=== PATIENT | female | born 1990 | race Caucasian/White ===

== ENCOUNTER 2017-10-08 13:58 | Emergency (ER) | payer OTHER, MEDICAID, SELFPAY ==
[2017-10-08 14:20] VITALS: BP 122/66; PULSE 78; RESP 16; TEMP 36.4; O2SAT 100; BMI 48.4
[2017-10-08 14:22] VITALS: BP 122/66; BP 122/72; BP 133/76; PULSE 74; PULSE 78; PULSE 79
[2017-10-08] MEDS: PANTOPRAZOLE 40 MG VIAL IV (15:06)
[2017-10-08] MEDS: ONDANSETRON 4 MG/2 ML INJ IV (15:06)
[2017-10-08] MEDS: SODIUM CHLORIDE 0.9% 1,000 ML 1000 ML IV (15:06)
[2017-10-08 15:14] VITALS: BP 121/72; PULSE 67; RESP 15; O2SAT 100
--- NOTE | 2017-10-08 15:19 | ED_ITS ---
HPI - Dizziness General Chief Complaint: Dizziness Stated Complaint: DIZZY, NAUSEOUS, FELL IN SHOWER THIS MORNING Time Seen by Provider: 10/08/17 14:14 Source: patient and family Mode of arrival: ambulatory Limitations: no limitations History of Present Illness HPI Narrative: 27-year-old otherwise healthy female presents to the emergency department with her family in the chief complaint of dizziness since 3:00 a.m.. She states that the dizziness came on rather suddenly and is associated with a few episodes of vomiting. She stood up and the shower and a near syncopal episode. She is currently on her menses and states that is normal for her. She denies any chest pain or shortness of breath. She states her dizziness is persistent all the time but is made worse when she moves her head or stands. She states her earlier in the day things were spinning rapidly but that has since improved MD complaint: dizziness, lightheadedness and near syncope Onset (ago): hour(s) Timing: sudden onset Description: sense of movement and lightheadedness History of similar episodes: No History of trauma: No Severity: moderate Relieving factors: nothing Exacerbating factors: nothing Associated symptoms: nausea and vomiting Related Data Previous Rx's Medication Instructions Recorded Breast Pump - Double Electric ea #1 12/15/16 ranitidine HCl 150 mg PO BID PRN #60 tab 06/20/17 fluoxetine 40 mg capsule 40 mg PO DAILY #90 cap 08/03/17 ondansetron [Zofran ODT] 4 mg PO Q6H PRN #14 tab 10/08/17 Allergies Allergy/AdvReac Type Severity Reaction Status Date / Time No Known Drug Allergies Allergy Verified 10/08/17 14:19 Review of Systems Review of Systems All systems reviewed & are unremarkable except as noted in HPI and below Constitutional Denies chills, Denies fever(s), Denies lethargy and Denies weakness Eyes Denies change in vision, Denies eye discharge, Denies irritation and Denies loss of vision ENT Ears, Nose, Mouth, and Throat: Denies change in voice, Denies neck pain and Denies sore throat Cardiovascular Denies chest pain, Reports syncope, Denies irregular heart rhythm, Denies lightheadedness, Denies palpitations, Denies dyspnea, Denies dyspnea on exertion and Denies orthopnea Respiratory Denies cough, Denies dyspnea, Denies dyspnea on exertion and Denies wheezing Gastrointestinal Gastrointestinal: Denies abdominal pain, Denies change in bowel habits, Denies diarrhea, Reports nausea and Reports vomiting Genitourinary Denies hematuria, Denies flank pain, Denies urinary incontinence and Denies urinary urgency Musculoskeletal Denies neck pain Integumentary/Breasts Denies pruritus, Denies erythema, Denies rash and Denies wounds Neurologic Denies confusion, Reports syncope, Denies loss of vision and Denies weakness Psychiatric Denies anxiety, Denies confusion, Denies depression, Denies homicidal ideation and Denies suicidal ideation Endocrine Denies palpitations Hematologic/Lymphatic Denies easy bruising Allergic/Immunologic Denies wheezing PFSH Medical History Depression (Chronic) Social History Smoking Status: Never smoker Exam Initial Vital Signs Initial Vital Signs: Vital Signs Temperature 97.6 F 10/08/17 14:20 Pulse Rate 78 10/08/17 14:20 Respiratory Rate 16 10/08/17 14:20 Blood Pressure 122/66 H 10/08/17 14:20 Pulse Oximetry 100 10/08/17 14:20 Const General: cooperative and well developed Nutritional Appearance: well nourished Orientation: alert, awake, oriented x3 and not confused [facility] Head: normocephalic and atraumatic Ears: external ears normal and TM's normal bilaterally Nose: external nose normal and No nasal discharge Face and sinus: sinuses nontender, face symmetric, no sinus tenderness and No dry mucous membranes Mouth: oral mucosae normal and moist mucous membranes Teeth and gingiva: dentition normal Throat: tonsils normal and uvula midline Eyes General: appearance normal, both eyes and all related structures Eyelids: eyelids normal Conjunctivae: conjunctivae normal Sclera: sclerae normal Pupils: PERRL EOM: EOM intact bilaterally Neck Neck: normal visual inspection, trachea midline, No lymphadenopathy, No midline deformity and No JVD Lymphatic: No lymphedema Chest Chest: normal inspection of the chest Resp Effort & Inspection: normal respiratory effort, able to speak in complete sentences, no respiratory distress and no use of accessory muscles Auscultation: clear to auscultation bilaterally, no rales, no rhonchi and no wheezes Cardio Rate: regular rate Rhythm: regular rhythm Heart Sounds: no click, no gallops, no murmurs and no rubs Pulses: normal peripheral pulses GI Inspection: non-distended Palpation: soft, no hepatosplenomegaly, No guarding, No pulsatile mass and No tender Auscultation: normal bowel sounds Back/Spine/Pelvis Back: No CVA tenderness Cervical Spine: cervical ROM normal and No pain with cervical ROM Thoracic/Lumbar Spine: thoracic and lumbar spine normal to inspection Skin General: no rashes or lesions noted, No jaundice and No petechiae Neuro General: alert, oriented x3, gait normal and no focal motor deficits Speech: speech normal Extrem General: full ROM, no clubbing, cyanosis or edema, no pedal edema and no calf tenderness Psych Appearance: well kempt Mental Status: mental status grossly normal Attitude: cooperative Thought Content: normal and suicidality Judgment: judgment good Course Orders Ordered: ED Orders 10/08/17 14:05 EKG-12 Lead Routine 10/08/17 15:14 Basic Metabolic Panel Stat Complete Blood Count AUTO DIFF Stat Discontinued Medications Sodium Chloride (Normal Saline 0.9%) 1,000 mls @ 1,000 mls/hr IV BOLUS ONE Stop: 10/08/17 15:52 Last Infusion: 10/08/17 16:16 Dose: 0 mls/hr Admin: 10/08/17 15:06 Dose: 1,000 mls/hr Ondansetron HCl (Zofran) 4 mg IV Q4HR PRN PRN Reason: Nausea And Vomiting Last Admin: 10/08/17 15:06 Dose: 4 mg Ondansetron HCl (Zofran Odt Prepack) 1 bottle MISC SEEINSTR ONE Stop: 10/08/17 18:31 Last Admin: 10/08/17 18:43 Dose: 1 bottle Pantoprazole Sodium (Protonix) 40 mg IV NOW ONE Stop: 10/08/17 14:54 Last Admin: 10/08/17 15:06 Dose: 40 mg Vital Signs - 8 hr 10/08/17 14:20 10/08/17 14:22 10/08/17 15:14 Temperature 97.6 F Pulse Rate 78 67 Pulse Rate [Orthostatic Lying] 78 Pulse Rate [Orthostatic Sitting] 74 Pulse Rate [Orthostatic Standing] 79 Respiratory Rate 16 15 Blood Pressure 122/66 H Blood Pressure [Left Arm] 121/72 H Blood Pressure [Orthostatic Lying] 122/66 H Blood Pressure [Orthostatic Sitting] 133/76 H Blood Pressure [Orthostatic Standing] 122/72 H Pulse Oximetry 100 100 10/08/17 16:09 10/08/17 17:06 10/08/17 18:37 Temperature 98.2 F Pulse Rate 63 68 68 Pulse Rate [Orthostatic Lying] Pulse Rate [Orthostatic Sitting] Pulse Rate [Orthostatic Standing] Respiratory Rate 15 14 16 Blood Pressure Blood Pressure [Left Arm] 110/45 L 99/41 L 100/52 L Blood Pressure [Orthostatic Lying] Blood Pressure [Orthostatic Sitting] Blood Pressure [Orthostatic Standing] Pulse Oximetry 100 100 99 MDM - Dizziness Differential Diagnosis Likely benign paroxysmal positional vertigo, orthostatic hypotension, vertebral basilar insufficiency, cerebrovascular accident, acute vestibular neuronitis and transient cerebral ischemia Medical Records Attestation: I reviewed the patient's medical records. Lab Data Attestation: I reviewed the patient's lab results. Result diagrams: 10/08/17 15:14 10/08/17 15:14 Lab Results 10/08/17 10/08/17 Range/Units 15:14 15:14 WBC 6.4 (4.5-11.0) X10^3/uL RBC 4.83 (4.0-5.2) X10^6/uL Hgb 14.1 (12.0-16.0) g/dL Hct 40.7 (36-46) % MCV 84.3 (80-100) fL MCH 29.2 (26-34) PG MCHC 34.6 (30-36) % RDW 13.5 (11.6-14.8) % Plt Count 281 (150-400) X10^3/uL Neut % (Auto) 71.5 (50-75) % Lymph % (Auto) 20.0 L (25-40) % [place] % (Auto) 7.1 (3-14) % Eos % (Auto) 0.7 L (2-4) % Baso % (Auto) 0.7 (0-2) % Neut # (Auto) 4600 (2522-0001) /uL Sodium 141 (137-145) mmol/L Potassium 4.1 (3.4-5.1) mmol/L Chloride 106 (98-107) mmol/L Carbon Dioxide 27 (22-32) mmol/L BUN 9 (7-17) mg/dL Creatinine 0.60 (0.52-1.04) mg/dL Estimated GFR > 60.0 (>60) mL/min BUN/Creatinine Ratio 15.0 (6-22) Glucose 87 (70-100) mg/dL Calcium 9.2 (8.4-10.2) mg/dL Discharge Plan Departure Patient Disposition: Home, Self-Care Clinical Impression: Dizziness Discharge Date/Time: 10/08/17 18:57 Interventions: ED Discharge Assessment Last Done: 10/08/17 18:57 Instructions: DI for Dizziness-Nonvertigo Activity Restrictions/Additional Instructions: *You have been diagnosed with [ dizziness ] *What to do: *Take medications as directed: Electronically transmitted to [facility] at your request *Follow up with your primary care provider in 2-3 days, call for an appointment. Let them know you were seen in the Emergency Department and that we ask that you be seen in follow up *Return to ER if you should have any new, worsening or concerning symptoms Prescriptions: New ondansetron [Zofran ODT] 4 mg tablet,disintegrating 4 mg PO Q6H PRN (Reason: nausea and vomiting) Qty: 14 RF: 0 No Action Breast Pump - Double Electric Qty: 1 RF: 0 ranitidine HCl 150 MG tablet 150 mg PO BID PRNQty: 60 RF: 2 fluoxetine 40 mg capsule 40 mg PO DAILY Qty: 90 RF: 2 Referrals: Marilee Graham MD [Primary Care Provider] -
[2017-10-08 15:29] LABS: Add Manual Diff / Slide Review NO; Basophils Percent Auto 0.7 % (0-2); Eosinophils Percent Auto 0.7 % (2-4); Hematocrit 40.7 % (36-46); Hemoglobin 14.1 g/dL (12.0-16.0); Mean Corpuscular HGB Conc 34.6 % (30-36); Mean Corpuscular Hemoglobin 29.2 PG (26-34); Mean Corpuscular Volume 84.3 fL (80-100); Monocytes Percent Auto 7.1 % (3-14); Neutrophils Absolute Auto 4600 /uL (3000-5900); Neutrophils Percent Auto 71.5 % (50-75); Platelet Count 281 X10^3/uL (150-400); Red Blood Cell Count 4.83 X10^6/uL (4.0-5.2); Red Cell Distribution Width 13.5 % (11.6-14.8); White Blood Cell Count 6.4 X10^3/uL (4.5-11.0)
--- NOTE | 2017-10-08 15:32 | PC.NURSE ---
Pt feeling better,no longer nauseated.
[2017-10-08 15:40] LABS: Blood Urea Nitrogen 9 mg/dL (7-17); Calcium 9.2 mg/dL (8.4-10.2); Carbon Dioxide 27 mmol/L (22-32); Chloride 106 mmol/L (98-107); Estimated Glomerular Filt Rate > 60.0 mL/min (>60); Glucose 87 mg/dL (70-100); HEMOLYSIS 17 (0-50); Potassium 4.1 mmol/L (3.4-5.1); Sodium 141 mmol/L (137-145)
[2017-10-08 16:09] VITALS: BP 110/45; PULSE 63; RESP 15; O2SAT 100
[2017-10-08 17:06] VITALS: BP 99/41; PULSE 68; RESP 14; O2SAT 100
[2017-10-08 18:37] VITALS: BP 100/52; PULSE 68; RESP 16; TEMP 36.8; O2SAT 99
[2017-10-08] MEDS: ONDANSETRON 4 MG ODT PREPACK 1 BOTTLE MISC (18:43)
== END 2017-10-08 18:57 | disposition home or self-care (01) ==
PROVIDERS: Emergency Provider Emergency Medicine; Family Provider Family Medicine; PCP Family Medicine
DX: R42 Dizziness and giddiness (principal)
CPT/HCPCS: 36591; 80048; 81003; 81025; 82962; 85025; 93005; 93010; 96361; 96374; 96375; 99283; C9113; J2405

== ENCOUNTER → 2017-11-17 10:54 | Outpatient (CLI) | payer OTHER, MEDICAID, SELFPAY | PROVIDERS: Family Provider Family Medicine; PCP Family Medicine; Visit Provider Nurse Practitioner Family | DX: J02.9 Acute pharyngitis, unspecified (principal) | CPT/HCPCS: 87070 ==

== ENCOUNTER → 2018-09-20 19:07 | Outpatient (CLI) | payer OTHER, MEDICAID, SELFPAY | PROVIDERS: Family Provider Family Medicine; PCP Family Medicine; Visit Provider Physician Assistant | DX: N39.0 Urinary tract infection, site not specified (principal) | CPT/HCPCS: 87077; 87086; 87186 ==

== ENCOUNTER → 2018-10-07 09:34 | Outpatient (CLI) | payer OTHER, MEDICAID, SELFPAY ==
--- NOTE | 2018-10-07 11:02 | DI.MRI.S_ITS ---
PROCEDURE: MR HEAD/BRAIN WO CON INDICATIONS: Vertigo with hearing loss, exam suggests central vertigo TECHNIQUE: Noncontrast axial T1 spin echo, axial T2 fast spin echo, sagittal and axial FLAIR, coronal T2 fast spin echo, axial gradient echo, axial diffusion and ADC through the brain. Additionally, high-resolution thin section CISS imaging through the skull base cranial nerves was obtained with subsequent coronal and sagittal reformation from source axial images. COMPARISON: None. FINDINGS: Image quality: Somewhat limited by absence of intravenous contrast. CSF Spaces: Basal cisterns are patent. No extra-axial fluid collections. Ventricles are normal in size and shape. Brain: No intracranial masses or hemorrhage. Shah/white matter interface is normal. Brainstem appears normal. Diffusion-weighted images demonstrate no acute ischemic insult. No chronic ischemic insults. Normal intravascular flow voids are present. Skull and face: Calvarium has normal marrow signal. Orbits appear normal. Sinuses: Sinuses and mastoids are clear. IMPRESSION: The study was ordered without intravenous contrast, which reduces the ability of the examination to detect cranial nerve inflammation. No mass is present, no impingement on the cranial nerves is seen. The brain parenchyma appears normal. Dictated by: Duke Edwards M.D. on 10/09/2018 at 8:10 Approved by: Duke Edwards M.D. on 10/09/2018 at 8:13
== END ==
PROVIDERS: Family Provider Family Medicine; PCP Family Medicine; Visit Provider Family Medicine
DX: R42 Dizziness and giddiness (principal); H91.90 Unspecified hearing loss, unspecified ear
CPT/HCPCS: 70551

== ENCOUNTER → 2019-01-01 15:31 | Outpatient (CLI) | payer OTHER, MEDICAID, SELFPAY | PROVIDERS: Family Provider Family Medicine; PCP Family Medicine; Visit Provider Nurse Practitioner | DX: R30.0 Dysuria (principal) | CPT/HCPCS: 87086 ==

== ENCOUNTER → 2019-01-02 12:58 | Outpatient (CLI) | payer OTHER, MEDICAID, SELFPAY ==
--- NOTE | 2019-01-02 12:59 | DI.US.S_ITS ---
LIMITED ULTRASOUND OF RIGHT BREAST: 01/02/2019 CLINICAL: Palpable right breast lump. Comparison is made to exam dated: 01/02/2019 [facility]. Color flow and real-time ultrasound of the right breast 12 o'clock region were performed on the areas of interest. There is a 1.1 cm x 0.8 cm x 0.9 cm oval mass with indistinct and circumscribed margins in the right breast at 12 o'clock middle depth. This oval mass is hyperechoic. This correlates as palpated and with mammographic findings. Color flow imaging demonstrates that there is no vascularity present. No additional discrete mass or fluid collection identified in the area of palpable abnormality. IMPRESSION: BENIGN There is no sonographic evidence of malignancy. The 1.1 cm x 0.8 cm x 0.9 cm oval mass in the right breast is consistent with fat necrosis given the mammographic finding and is benign. This exam was interpreted at Station ID: [id number]. Electronically Signed By: Joce marte/:01/02/2019 15:45:36 letter sent: Clinical Evaluation Ultrasound BI-RADS: 2 Benign
--- NOTE | 2019-01-02 12:59 | DI.MG.S_ITS ---
BILATERAL DIGITAL DIAGNOSTIC MAMMOGRAM 3D/2D: 01/02/2019 CLINICAL: Baseline exam. Right breast lump. No prior exams were available for comparison. There are scattered fibroglandular elements in both breasts. There is a 1 cm oval fat containing fat necrosis with an indistinct and circumscribed margin in the right breast at 11 o'clock anterior depth. This correlates as palpated. No other significant masses, calcifications, or other findings are seen in either breast. IMPRESSION: INCOMPLETE: NEEDS ADDITIONAL IMAGING EVALUATION The 1 cm oval fat containing fat necrosis in the right breast is indeterminate. An ultrasound is recommended. This exam was interpreted at Station ID: [id number]. NOTE: For mammograms, a report in lay terms will be sent to the patient. Approximately 15% of breast malignancies will not be visualized mammographically. In the management of a palpable breast mass, a negative mammogram must not discourage biopsy of a clinically suspicious lesion. Electronically Signed By: Joce Son M.D. ddholly/roxy:01/02/2019 14:08:21 copy to: Marilee Graham M.D., [facility] [employer], ph: [phone], fax: [phone] ACR BI-RADS Category 0: Incomplete 3340F
== END ==
PROVIDERS: Family Provider Family Medicine; PCP Family Medicine; Visit Provider Physician Assistant
DX: R92.8 Other abnormal and inconclusive findings on diagnostic imaging of breast (principal); N64.1 Fat necrosis of breast; N63.15 Unspecified lump in the right breast, overlapping quadrants
CPT/HCPCS: 76642; 77066; G0279

== ENCOUNTER → 2021-03-20 07:05 | Outpatient (CLI) | payer OTHER, MEDICAID, SELFPAY ==
[2021-03-20 07:50] LABS: Add Manual Diff / Slide Review NO; Basophils Absolute Auto 0 /uL (0-100); Basophils Percent Auto 0.5 % (0-2); Eosinophils Absolute Auto 100 /uL (0-450); Eosinophils Percent Auto 1.6 % (2-4); Hematocrit 40.4 % (36-46); Lymphocytes Absolute Auto 1900 /uL (1100-4500); Lymphocytes Percent Auto 33.4 % (25-40); Mean Corpuscular HGB Conc 34.6 % (30-36); Mean Corpuscular Hemoglobin 29.8 PG (26-34); Monocytes Absolute Auto 400 /uL (0-900); Monocytes Percent Auto 6.5 % (3-14); Neutrophils Absolute Auto 3200 /uL (1500-7000); Platelet Count 276 X10^3/uL (150-400); Red Blood Cell Count 4.69 X10^6/uL (4.0-5.2); Red Cell Distribution Width 12.5 % (11.6-14.8); White Blood Cell Count 5.6 X10^3/uL (4.5-11.0)
[2021-03-20 08:17] LABS: Hemoglobin A1C% w Est Avg Glu 4.7 % (4.0-6.0)
[2021-03-20 08:22] LABS: Alanine Aminotransferase 14 IU/L (<35); Albumin 4.1 g/dL (3.5-5.0); Albumin Globulin Ratio 1.3 (1.0-2.8); Alkaline Phosphatase 45 U/L (38-126); Aspartate Aminotransferase 18 IU/L (14-36); Bilirubin Total 0.5 mg/dL (0.2-1.3); Blood Urea Nitrogen 11 mg/dL (7-17); Calcium 9.3 mg/dL (8.4-10.2); Carbon Dioxide 29 mmol/L (22-32); Chloride 105 mmol/L (98-107); Cholesterol 171 mg/dL (140-199); Estimated Glomerular Filt Rate > 60.0 mL/min (>60); Globulin 3.1 g/dL (1.7-4.1); Glucose 95 mg/dL (70-100); HDL Cholesterol 53 mg/dL (40-60); HEMOLYSIS < 15 (0-50); LDL Cholesterol Calculated 104 mg/dL (<100); Potassium 4.3 mmol/L (3.4-5.1); Sodium 138 mmol/L (137-145); Total Protein 7.2 g/dL (6.3-8.2); Triglycerides 71 mg/dL (35-150)
== END ==
PROVIDERS: Family Provider Family Medicine; PCP Family Medicine; Referring Provider Family Medicine; Visit Provider Family Medicine
DX: Z01.818 Encounter for other preprocedural examination (principal)
CPT/HCPCS: 36415; 80053; 80061; 83036; 85025

== ENCOUNTER 2021-12-08 11:59 | Emergency (ER) | payer OTHER, MEDICAID, SELFPAY ==
[2021-12-08 12:28] VITALS: BP 127/74; PULSE 79; RESP 16; TEMP 36.3; O2SAT 98; BMI 32.9
--- NOTE | 2021-12-08 13:14 | DI.CT.S_ITS ---
PROCEDURE: CT SOFT TISSUE NECK W CON INDICATIONS: left ear swelling TECHNIQUE: After the administration of intravenous contrast, 3.0 mm axial sections acquired from the sella to the aortic arch. Additional oblique axial 3.0 mm sections acquired through the pharynx. 3 mm thick coronal and sagittal reformats were generated. For radiation dose reduction, the following was used: automated exposure control. COMPARISON: None. FINDINGS: Image quality: Excellent. Lymph nodes: As below Vessels: Visualized vasculature appears patent. Neck spaces: The oropharynx, nasopharynx, and pharynx demonstrate no mucosal lesions. The vocal cords, false vocal cords, pyriform sinuses, epiglottis, vallecula, and tongue base all appear normal. Extramucosal spaces appear unremarkable. Glands: Left intraparotid multi lobular nodule measures 2.1 by 1.1 cm overall, and associated with surrounding parotid edema. No evidence of calculus. Right parotid unremarkable. Additional local deep cervical adenopathy measures up to 1 cm. Otherwise, both submandibular and thyroid gland unremarkable Miscellaneous: Visualized brain and orbits appear normal. Lung apices appear clear. Superficial soft tissues appear normal. Advanced carious dental disease noted bilaterally. Bones: No suspicious bony lesions. Visualized sinuses and mastoids appear unremarkable. IMPRESSION: Left parotiditis. Intraparotid nodules probably reflect reactive intraparotid lymph nodes. However, recommend follow-up CT with contrast to assure resolution Approved by: Brandon Curtis M.D. on 12/08/2021 at 13:50
[2021-12-08 13:19] LABS: Add Manual Diff / Slide Review NO; Basophils Absolute Auto 0 /uL (0-100); Basophils Percent Auto 0.3 % (0-2); Eosinophils Absolute Auto 0 /uL (0-450); Eosinophils Percent Auto 0.6 % (2-4); Hematocrit 39.7 % (36-46); Hemoglobin 13.6 g/dL (12.0-16.0); Lymphocytes Absolute Auto 1300 /uL (1100-4500); Lymphocytes Percent Auto 22.9 % (25-40); Mean Corpuscular HGB Conc 34.3 % (30-36); Mean Corpuscular Hemoglobin 30.1 PG (26-34); Mean Corpuscular Volume 87.7 fL (80-100); Monocytes Absolute Auto 600 /uL (0-900); Monocytes Percent Auto 9.8 % (3-14); Neutrophils Absolute Auto 3800 /uL (1500-7000); Neutrophils Percent Auto 66.4 % (50-75); Platelet Count 215 X10^3/uL (150-400); Red Blood Cell Count 4.53 X10^6/uL (4.0-5.2); Red Cell Distribution Width 13.1 % (11.6-14.8); White Blood Cell Count 5.7 X10^3/uL (4.5-11.0)
[2021-12-08 13:22] LABS: Lactate (Lactic Acid) 1.1 mmol/L (0.7-2.1)
[2021-12-08 13:23] LABS: Alanine Aminotransferase 12 IU/L (<35); Albumin 3.9 g/dL (3.5-5.0); Albumin Globulin Ratio 1.1 (1.0-2.8); Alkaline Phosphatase 63 U/L (38-126); Aspartate Aminotransferase 41 IU/L (14-36); BUN Creatinine Ratio 26.9 (6-22); Bilirubin Total 0.7 mg/dL (0.2-1.3); Blood Urea Nitrogen 14 mg/dL (7-17); Carbon Dioxide 25 mmol/L (22-32); Chloride 102 mmol/L (98-107); Estimated Glomerular Filt Rate > 60 mL/min (>60); Globulin 3.4 g/dL (1.7-4.1); Glucose 96 mg/dL (70-100); HEMOLYSIS 46 (0-50); Sodium 135 mmol/L (137-145); Total Protein 7.3 g/dL (6.3-8.2)
--- NOTE | 2021-12-08 16:47 | ED.SKABFB ---
HPI - Skin/Abscess/Foreign Bdy General Chief complaint: Skin/Abscess/Foreign Body Stated complaint: Swollen left ear since tuesday- sent by Dr graham Time Seen by Provider: 12/08/21 12:06 Source: patient Mode of arrival: Ambulatory Limitations: no limitations History of Present Illness HPI narrative: This is a 31-year-old with complaint of left cheek swelling that then moved her left ear with significant swelling, redness and discomfort starting on Tuesday and increasing into today. Patient was started on oral doxycycline on Tuesday and Cipro drops for her ear with very mild improvement. Patient denies fevers. No hearing loss. She is had chronic issues with her ears since she was a child with skin changes itching and has seen multiple doctors as a pediatric patient was on multiple medications she is not sure exactly what was wrong she does not recall the final diagnosis but has persistently had issues over the years. She denies any voice changes, no difficulties with swallowing, patient denies any sore throat. Patient states she noticed some more fullness over the parotid gland today but the swelling has actually slightly improved according to the patient. She is had occasional nausea and vomiting but not persistently. No chest pain, no shortness of breath. No GI or urinary symptoms otherwise. No known drug allergies. She does have some dental issues particularly on that side but states her teeth are not hurting her. Related Data Previous Rx's Medication Instructions Recorded Breast Pump - Double Electric ea ##1 12/15/16 meclizine 12.5 mg tablet 25 mg PO BID-TID PRN dizziness #60 09/26/18 tabs mometasone 0.1 % topical solution 1 applictn topical DAILY #30 mL 10/11/18 pantoprazole 40 mg tablet,delayed 40 mg PO DAILY #30 tabs 11/20/18 release ciprofloxacin 0.3 %-dexamethasone 4 drp EAR-RIGHT BID 7 days #7.5 mL 12/06/21 0.1 % ear drops,suspension (Ciprodex) doxycycline hyclate 100 mg capsule 100 mg PO BID 7 days #14 caps 12/06/21 amoxicillin 875 mg-potassium 1 tab PO BID #20 tabs 12/08/21 clavulanate 125 mg tablet prednisone 10 mg tablets in a dose See Rx Instructions PO .COMPLEX 12/08/21 pack #15 ea Allergies Allergy/AdvReac Type Severity Reaction Status Date / Time No Known Drug Allergies Allergy Verified 12/06/21 10:59 Review of Systems Review of Systems ROS Unobtainable: All systems reviewed & are unremarkable except as noted in HPI and below Patient History Medical History Depression Social History Smoking Status: Never smoker Smoking Status: Never smoker alcohol intake frequency: a few times a month Substance Use Type: does not use Exam Narrative Exam Narrative: GEN: well nourished, well appearing female, alert and oriented x 3, patient appears to be in mild distress. HEENT: Atraumatic, pupils are equal round reactive to light, extraocular movements are intact, nares are clear, TMs are clear with no fluid, there is no conjunctival pallor patient's left ear she at the preauricular area is erythematous no fluctuance is indurated, patient erythema extending into the left high auricular area, patient ear canal is open I am able to visualize her TM without issue. No stridor, no difficulty swallowing secretions. Patient has normal range of motion of neck. Throat is clear without any exudates, erythema, tonsillar enlargement or uvular deviation HEART: Regular rate and rhythm without murmur, clicks, rubs. No carotid bruits, pulses are equal in upper and lower extremities LUNGS:Lungs clear to auscultation, no wheezes, rales, crackles, chest moves symmetrically ABD:bowel sounds normal, soft, non-tender, no guarding, rebound, rigidity, no masses noted, no hepatosplenomegaly :No CVA tenderness MSCL: Non-tender, no muscle atrophy, muscles strength 5/5 upper and lower extremities, full range of motion, normal gait NEURO:CN 2-12 intact, sensation normal SKIN: See above. Initial Vital Signs Initial Vital Signs: Vital Signs Temperature 97.4 F L 12/08/21 12:28 Pulse Rate 79 12/08/21 12:28 Respiratory Rate 16 12/08/21 12:28 Blood Pressure 127/74 12/08/21 12:28 Pulse Oximetry 98 12/08/21 12:28 Oxygen Delivery Method 12/08/21 12:28 Course Orders Ordered: ED Orders 12/08/21 12:39 CMP [Comprehensive Metabolic Panel] Stat Complete Blood Count AUTO DIFF Stat Lactate (Lactic Acid) Stat 12/08/21 13:14 CT soft tissue neck w con Stat 12/08/21 17:30 Blood Culture Stat Discontinued Medications Dexamethasone (Dexamethasone 10 Mg/Ml Vial) 10 mg IV NOW ONE Stop: 12/08/21 18:29 Last Admin: 12/08/21 18:51 Dose: 10 mg Documented By: KP Ampicillin Sodium/Sulbactam (Sodium 3 gm/ Sodium Chloride) 100 mls @ 200 mls/hr IV NOW ONE Stop: 12/08/21 16:52 Last Infusion: 12/08/21 18:45 Dose: 0 mls/hr Documented By: Admin: 12/08/21 17:36 Dose: 200 mls/hr Documented By: BT Ketorolac Tromethamine (Ketorolac 30 Mg/Ml Vial) 30 mg IV NOW ONE Stop: 12/08/21 17:09 Last Admin: 12/08/21 17:17 Dose: 30 mg Documented By: PAT Consultations Consultation #1: Dr. Gutierrez, ENT. Does recommend dexamethasone he would recommend patient has been on doxycycline the Augmentin may be more appropriate. Time: 18:21 Vital Signs Vital signs: Vital Signs - 8 hr 12/08/21 12:28 12/08/21 19:08 Temperature 97.4 F L Pulse Rate 79 80 Respiratory Rate 16 17 Blood Pressure 127/74 111/61 Pulse Oximetry 98 98 Oxygen Delivery Method Room Air Room Air MDM - Skin/Abscess/Foreign Bdy Lab Data Result diagrams: 12/08/21 12:39 12/08/21 12:39 Labs: Lab Results 12/08/21 12/08/21 12/08/21 Range/Units 12:39 12:39 12:39 WBC 5.7 (4.5-11.0) X10^3/uL RBC 4.53 (4.0-5.2) X10^6/uL Hgb 13.6 (12.0-16.0) g/dL Hct 39.7 (36-46) % MCV 87.7 (80-100) fL MCH 30.1 (26-34) PG MCHC 34.3 (30-36) % RDW 13.1 (11.6-14.8) % Plt Count 215 (150-400) X10^3/uL Neut % (Auto) 66.4 (50-75) % Lymph % (Auto) 22.9 L (25-40) % [place] % (Auto) 9.8 (3-14) % Eos % (Auto) 0.6 L (2-4) % Baso % (Auto) 0.3 (0-2) % Neut # (Auto) 3800 (5917-7795) /uL Lymph # (Auto) 1300 (7039-7662) /uL [place] # (Auto) 600 (0-900) /uL Eos # (Auto) 0 (0-450) /uL Baso # (Auto) 0 (0-100) /uL Sodium 135 L (137-145) mmol/L Potassium 4.0 (3.4-5.1) mmol/L Chloride 102 (98-107) mmol/L Carbon Dioxide 25 (22-32) mmol/L BUN 14 (7-17) mg/dL Creatinine 0.52 (0.52-1.04) mg/dL Estimated GFR > 60 (>60) mL/min BUN/Creatinine Ratio 26.9 H (6-22) Glucose 96 (70-100) mg/dL Lactate 1.1 (0.7-2.1) mmol/L Calcium 9.0 (8.4-10.2) mg/dL Total Bilirubin 0.7 (0.2-1.3) mg/dL AST 41 H (14-36) IU/L ALT 12 (<35) IU/L Alkaline Phosphatase 63 (38-126) U/L Total Protein 7.3 (6.3-8.2) g/dL Albumin 3.9 (3.5-5.0) g/dL Globulin 3.4 (1.7-4.1) g/dL Albumin/Globulin Ratio 1.1 (1.0-2.8) Imaging Data CT soft tissue neck: Radiologist's Impression: Close Soft Tissue Neck CT (Signed) Brandon Curtis - 12/08/21 Mammogram Diagnostic (Signed) Joce Son - 01/02/19 Breast Ultrasound (Signed) Joce Son - 01/02/19 Brain MRI (Signed) Duke Edwards - 10/07/[address] [address] [address] Scan Report Signed Patient: Irma Collado MR#: [id number] : 1990 Acct:[id number] Age/Sex: 31 / F Date of Service: 12/08/21 Loc: ED Accession Number: [id number] ?? Procedure: CT soft tissue neck w con Ordering Provider: Jenae Zelaya D.O. PROCEDURE:? CT SOFT TISSUE NECK W CON ? INDICATIONS:? left ear swelling ? TECHNIQUE:? After the administration of intravenous contrast, 3.0 mm axial sections acquired from the sella to the aortic arch.? Additional oblique axial 3.0 mm sections acquired through the pharynx.? 3 mm thick coronal and sagittal reformats were generated.? For radiation dose reduction, the following was used:? automated exposure control.? ? COMPARISON:? None. ? FINDINGS:? Image quality:? Excellent.? ? Lymph nodes:? As below ? Vessels:? Visualized vasculature appears patent.? ? Neck spaces:? The oropharynx, nasopharynx, and pharynx demonstrate no mucosal lesions.? The vocal cords, false vocal cords, pyriform sinuses, epiglottis, vallecula, and tongue base all appear normal.? Extramucosal spaces appear unremarkable.? ? Glands:? Left intraparotid multi lobular nodule measures 2.1 by 1.1 cm overall, and associated with surrounding parotid edema.? No evidence of calculus.? Right parotid unremarkable.? Additional local deep cervical adenopathy measures up to 1 cm.? Otherwise, both submandibular and thyroid gland unremarkable ? Miscellaneous:? Visualized brain and orbits appear normal.? Lung apices appear clear.? Superficial soft tissues appear normal.? Advanced carious dental disease noted bilaterally. ? Bones:? No suspicious bony lesions.? Visualized sinuses and mastoids appear unremarkable. ? ? ? IMPRESSION:? ? Left parotiditis.? Intraparotid nodules probably reflect reactive intraparotid lymph nodes.? However, recommend follow-up CT with contrast to assure resolution ? Approved by: Brandon Curtis M.D. on 12/08/2021 at 13:50? [facility] Narrative Medical decision making narrative: This is a 31-year-old male with significant swelling left parotid region and radiating into her ear she is had minimal improvement with approximately 24 to 36 hours of oral antibiotics which were doxycycline and Cipro. Patient labs are overall reassuring vitals do not show any signs sepsis. Patient CT shows parotid enlargement with lymph nodes consistent with acute prostatitis but no abscess or other fluid collection. Patient is given additional dose of Unasyn she did not have improvement with doxycycline making MRSA seem much less likely. Discussed with ENT who recommends Augmentin at this time, appropriate for this patient to be a candidate for steroids. Discussed with patient and return precautions. She defers anything pain Discharge Plan Departure Patient Disposition: Home Clinical Impression: Acute parotitis Instructions: DI for Parotitis-Adult Activity Restrictions/Additional Instructions: Please follow-up for recheck with ENT, please call to set up an appointment. You may take ibuprofen up to 800 mg every 8 hours and/or Tylenol up to a 1000 mg every 6 hours. Please take steroids until completely gone. You received your 1st dose this evening Take Augmentin until completely gone. Pres[facility] Please return for fevers, increasing swelling, pain redness, swelling of your airway, hoarseness or other new changes. Prescriptions: New amoxicillin-pot clavulanate 875-125 mg tablet 1 tab PO BID Qty: 20 0RF prednisone 10 mg tablets,dose pack See Rx Instructions .ROUTE .COMPLEX Qty: 15 0RF Rx Instructions: Take 5 tablets p.o. x1 day, then 4 tablets p.o. x1 day, then 3 tablets p.o. x1 day, then 2 tablets p.o. x1 day, then 1 tablet p.o. x1 No Action meclizine 12.5 mg tablet 25 mg PO BID-TID PRN (Reason: dizziness) Qty: 60 0RF mometasone 0.1 % solution 1 applictn TOP DAILY Qty: 30 0RF Rx Instructions: Apply to left external auditory canal once daily for 7 days as needed doxycycline hyclate 100 mg capsule 100 mg PO BID 7 Days Qty: 14 0RF ciprofloxacin-dexamethasone [Ciprodex] 0.3-0.1 % drops,suspension 4 drp EAR-RIGHT BID 7 Days Qty: 7.5 0RF Breast Pump - Double Electric Qty: 1 0RF pantoprazole 40 mg tablet,delayed release (DR/EC) 40 mg PO DAILY Qty: 30 5RF Rx Instructions: Take 30 minutes before a meal Referrals: Beto Gutierrez MD [Physician] - Marilee Garham MD [Primary Care Provider] - Stand Alone Forms: Work Release Note Visit Report Forms: Patient Portal/API
[2021-12-08] MEDS: KETOROLAC 30 MG/ML VIAL IV (17:17)
[2021-12-08] MEDS: AMPICILLIN/SULBACTAM 3 GM 3 GM in SODIUM CHLORIDE 0.9% 100 ML IV (17:36)
--- NOTE | 2021-12-08 17:56 | PC.NURSE ---
1735 called [facility] ent [phone] spoke with shira and requested ent consult for dr prince
[2021-12-08] MEDS: DEXAMETHASONE 10 MG/ML VIAL IV (18:51)
[2021-12-08 19:08] VITALS: BP 111/61; PULSE 80; RESP 17; O2SAT 98
== END 2021-12-08 19:08 | disposition home or self-care (01) ==
PROVIDERS: Emergency Provider Emergency Medicine; Family Provider Family Medicine; PCP Family Medicine
DX: K11.21 Acute sialoadenitis (principal)
CPT/HCPCS: 70491; 80053; 83605; 85025; 87040; 96365; 96375; 99283; 99284; J0295; J1100; J1885

== ENCOUNTER 2021-12-23 17:27 | Emergency (ER) | payer OTHER, MEDICAID, SELFPAY ==
[2021-12-23 17:41] VITALS: BP 129/84; PULSE 73; RESP 18; TEMP 37.2; O2SAT 98
--- NOTE | 2021-12-23 22:55 | DI.CT.S_ITS ---
PROCEDURE: CT FACIAL BONES W CON INDICATIONS: Left facial swelling TECHNIQUE: After the administration of intravenous contrast, 2.5 mm axial sections acquired from the mid-neck to the frontal sinuses, with coronal and sagittal reformats. For radiation dose reduction, the following was used: automated exposure control, adjustment of mA and/or kV according to patient size. COMPARISON: [facility], CT, CT SOFT TISSUE NECK W CON, 12/08/2021, 13:28. FINDINGS: Image quality: Excellent. Soft tissues: There is mild left facial soft tissue swelling and mild subcutaneous fat stranding predominantly involving the left preauricular region. There are asymmetric mildly prominent lymph nodes within the left parotid gland measuring up to 0.9 cm in short axis. No discrete loculated fluid collection to suggest an abscess. No soft tissue gas. Vascular: Visualized vascular structures appear patent throughout. Bony vascular foramina and canals appear normal. Bones: Visualized facial bones appear intact, without fractures, erosions, or destruction. Visualized portions of the skull base and auditory canals also appear normal. Sinuses: Paranasal sinuses are aerated without fluid levels, mucosal thickening, or mucoceles. Mastoid air cells are aerated. IMPRESSION: 1. Mild left facial soft tissue swelling is nonspecific but suggestive of infection. No discrete abscess collection. Dictated by: Joce Son M.D. on 12/24/2021 at 0:04 Approved by: Joce Son M.D. on 12/24/2021 at 0:08
--- NOTE | 2021-12-23 22:55 | ED.EAR ---
HPI - Ear Problem General Chief complaint: Ear Stated complaint: swollen left ear Time Seen by Provider: 12/23/21 22:31 Source: patient Mode of arrival: Ambulatory History of Present Illness HPI Narrative: Patient here for left ear swelling. This started a couple days ago. Patient seen here 2 weeks ago placed on Augmentin for preauricular facial swelling that improved after 7 days treatment. However now the left ear is involved. No hearing loss. No fever chills. No new jewelry or piercings. Related Data Previous Rx's Medication Instructions Recorded Breast Pump - Double Electric ea ##1 12/15/16 meclizine 12.5 mg tablet 25 mg PO BID-TID PRN dizziness #60 09/26/18 tabs mometasone 0.1 % topical solution 1 applictn topical DAILY #30 mL 10/11/18 pantoprazole 40 mg tablet,delayed 40 mg PO DAILY #30 tabs 11/20/18 release amoxicillin 875 mg-potassium 1 tab PO BID #20 tabs 12/08/21 clavulanate 125 mg tablet prednisone 10 mg tablets in a dose See Rx Instructions PO .COMPLEX 12/08/21 pack #15 ea doxycycline monohydrate 100 mg 100 mg PO BID #20 caps 12/24/21 capsule Allergies Allergy/AdvReac Type Severity Reaction Status Date / Time No Known Drug Allergies Allergy Verified 12/06/21 10:59 Review of Systems Review of Systems Narrative: GENERAL: Denies chills, fatigue, malaise, fever, sweats. HEENT: Denies sinus pain, positive ear pain, negative sore throat RESPIRATORY: Denies dyspnea, cough CARDIOVASCULAR: Denies chest pain, palpitations GASTROINTESTINAL: Denies nausea, vomiting, abdominal pain : Denies dysuria, frequency, hematuria MUSCULOSKELETAL: denies muscle or bony pain SKIN: Denies rash, skin lesions NEUROLOGIC: Denies weakness, numbness ROS Unobtainable: All systems reviewed & are unremarkable except as noted in HPI and below Patient History Medical History (Updated 12/24/21 @ 00:36 by Ronal Camacho MD) Depression Social History Smoking Status: Never smoker Smoking Status: Never smoker alcohol intake frequency: a few times a month Substance Use Type: does not use Exam Narrative Exam Narrative: GENERAL: in no distress, not toxic not dyspneic HEAD: Normocephalic. EYES: Pupils equal round No scleral icterus. ENT: Mucous membranes moist. Examination left ear. Canal is patent. There is gross edema swelling of the earlobe and external ear. Tragus is nontender but is edematous. No preauricular edema or posterior edema. NEURO: AOx4. SKIN: Warm and dry PSYCH: Not anxious, is cooperative Initial Vital Signs Initial Vital Signs: Vital Signs Temperature 98.9 F 12/23/21 17:41 Pulse Rate 73 12/23/21 17:41 Respiratory Rate 18 12/23/21 17:41 Blood Pressure 129/84 12/23/21 17:41 Pulse Oximetry 98 12/23/21 17:41 Oxygen Delivery Method 12/23/21 17:41 Course Course Course Narrative: No new issues during course of stay Orders Ordered: ED Orders 12/23/21 22:55 CT facial bones w con Stat 12/23/21 23:10 CBC Auto Diff [Complete Blood Count AUTO DIFF] Stat CMP [Comprehensive Metabolic Panel] Stat Discontinued Medications Sodium Chloride (Normal Saline 0.9%) 500 mls @ 1,000 mls/hr IV BOLUS ONE Stop: 12/23/21 23:24 Last Infusion: 12/23/21 23:58 Dose: 0 mls/hr Documented By: Admin: 12/23/21 23:22 Dose: 1,000 mls/hr Documented By: RONA Doxycycline Hyclate 100 mg/ (Sodium Chloride) 100 mls @ 100 mls/hr IV NOW ONE Stop: 12/24/21 00:12 Last Infusion: 12/24/21 02:02 Dose: 0 mls/hr Documented By: Admin: 12/24/21 00:35 Dose: 100 mls/hr Documented By: RONA Reevaluation(s) Reevaluation #1: Spoke with patient results and my discussion with Dr. Garsia. She agrees with treatment plan. Patient in no distress. No changes in ear infection at this time. Time: 00:34 Consultations Consultation #1: Spoke with Otolaryngology, Dr. Kota Garsia, agrees at this time will try to change antibiotics to doxycycline, patient to be seen in his office next Tuesday. Otherwise may return to the ER if not improving over the weekend. Time: 00:32 Vital Signs Vital signs: Vital Signs - 8 hr 12/24/21 02:02 Pulse Rate 70 Respiratory Rate 18 Blood Pressure 124/82 Pulse Oximetry 99 Oxygen Delivery Method Room Air Medical Decision Making Differential Diagnosis Differential Diagnosis: Cellulitis Lab Data Result diagrams: 12/23/21 23:10 12/23/21 23:10 Labs: Lab Results 12/23/21 12/23/21 Range/Units 23:10 23:10 WBC 5.7 (4.5-11.0) X10^3/uL RBC 4.21 (4.0-5.2) X10^6/uL Hgb 12.8 (12.0-16.0) g/dL Hct 37.3 (36-46) % MCV 88.4 (80-100) fL MCH 30.4 (26-34) PG MCHC 34.3 (30-36) % RDW 13.2 (11.6-14.8) % Plt Count 246 (150-400) X10^3/uL Neut % (Auto) 52.3 (50-75) % Lymph % (Auto) 36.3 (25-40) % [place] % (Auto) 9.7 (3-14) % Eos % (Auto) 1.3 L (2-4) % Baso % (Auto) 0.4 (0-2) % Neut # (Auto) 3000 (0549-4373) /uL Lymph # (Auto) 2100 (6368-7056) /uL [place] # (Auto) 600 (0-900) /uL Eos # (Auto) 100 (0-450) /uL Baso # (Auto) 0 (0-100) /uL Sodium 137 (137-145) mmol/L Potassium 3.7 (3.4-5.1) mmol/L Chloride 102 (98-107) mmol/L Carbon Dioxide 30 (22-32) mmol/L BUN 10 (7-17) mg/dL Creatinine 0.50 L (0.52-1.04) mg/dL Estimated GFR > 60 (>60) mL/min BUN/Creatinine Ratio 20.0 (6-22) Glucose 98 (70-100) mg/dL Calcium 8.5 (8.4-10.2) mg/dL Total Bilirubin 0.3 (0.2-1.3) mg/dL AST 21 (14-36) IU/L ALT 19 (<35) IU/L Alkaline Phosphatase 61 (38-126) U/L Total Protein 6.6 (6.3-8.2) g/dL Albumin 3.5 (3.5-5.0) g/dL Globulin 3.1 (1.7-4.1) g/dL Albumin/Globulin Ratio 1.1 (1.0-2.8) Point of Care Testing Test Results Negative Urine Dip Bedside Urine Glucose Negative Bedside Urine Bilirubin - Negative Bedside Urine Ketone - Negative Urine Specific [place] 1.015 Bedside Urine Occult Blood - Negative Bedside Urine pH 6.0 Bedside Urine Protein - Negative Bedside Urine Urobilinogen - Negative Bedside Urine Nitrite - Negative Bedside Urine Leukocytes - Negative Esterase Point of care testing: Point of Care Testing Test Results Negative Urine Dip Bedside Urine Glucose Negative Bedside Urine Bilirubin - Negative Bedside Urine Ketone - Negative Urine Specific [place] 1.015 Bedside Urine Occult Blood - Negative Bedside Urine pH 6.0 Bedside Urine Protein - Negative Bedside Urine Urobilinogen - Negative Bedside Urine Nitrite - Negative Bedside Urine Leukocytes - Negative Esterase Imaging Data CT face with IV contrast: Radiologist's Impression: [place] [address] CT Scan Report Signed Patient: Irma Collado MR#: [id number] : 1990 Acct:[id number] Age/Sex: 31 / F Date of Service: 12/23/21 Loc: Accession Number: [id number] ?? Procedure: CT facial bones w con Ordering Provider: Ronal Camacho MD PROCEDURE:? CT FACIAL BONES W CON ? INDICATIONS:? Left facial swelling ? TECHNIQUE:? After the administration of intravenous contrast, 2.5 mm axial sections acquired from the mid-neck to the frontal sinuses, with coronal and sagittal reformats.? For radiation dose reduction, the following was used:? automated exposure control, adjustment of mA and/or kV according to patient size.? ? COMPARISON:? [facility], CT, CT SOFT TISSUE NECK W CON, 12/08/2021, 13:28. ? FINDINGS:? Image quality:? Excellent.? ? Soft tissues:? There is mild left facial soft tissue swelling and mild subcutaneous fat stranding predominantly involving the left preauricular region.? There are asymmetric mildly prominent lymph nodes within the left parotid gland measuring up to 0.9 cm in short axis.? No discrete loculated fluid collection to suggest an abscess.? No soft tissue gas. ? Vascular:? Visualized vascular structures appear patent throughout.? Bony vascular foramina and canals appear normal.? ? Bones:? Visualized facial bones appear intact, without fractures, erosions, or destruction.? Visualized portions of the skull base and auditory canals also appear normal.? ? Sinuses:? Paranasal sinuses are aerated without fluid levels, mucosal thickening, or mucoceles.? Mastoid air cells are aerated.? ? IMPRESSION:? ? 1. Mild left facial soft tissue swelling is nonspecific but suggestive of infection.? No discrete abscess collection. ? ? Dictated by: Joce Son M.D. on 12/24/2021 at 0:04 ? ? Approved by: Joce Son M.D. on 12/24/2021 at 0:08 ? MDM Narrative Medical decision making narrative: Appropriate for discharge home. Exam and laboratory studies are reassuring. No surgical intervention indicated this time. No admission indicated. I did review with Otolaryngology and appropriate for discharge home and change in antibiotics, Dr. Garsia will see patient in the office next Tuesday, return precautions reviewed with patient. She agrees with treatment plan and desires discharge home. Pain is controlled at time of discharge and during course of stay Discharge Plan Departure Patient Disposition: Home Clinical Impression: Cellulitis of auricle of left ear Instructions: DI for Cellulitis -- Adult Activity Restrictions/Additional Instructions: Return immediately if worse if any questions or concerns. Please call Dr. Garsia office in the morning for office re-evaluation for Tuesday. Prescription antibiotics has been sent to your pharmacy to continue tomorrow. It will be taken twice a day for 10 days. May use ibuprofen or Tylenol for pain. Prescriptions: New doxycycline monohydrate 100 mg capsule 100 mg PO BID Qty: 20 0RF No Action meclizine 12.5 mg tablet 25 mg PO BID-TID PRN (Reason: dizziness) Qty: 60 0RF mometasone 0.1 % solution 1 applictn TOP DAILY Qty: 30 0RF Rx Instructions: Apply to left external auditory canal once daily for 7 days as needed Breast Pump - Double Electric Qty: 1 0RF pantoprazole 40 mg tablet,delayed release (DR/EC) 40 mg PO DAILY Qty: 30 5RF Rx Instructions: Take 30 minutes before a meal amoxicillin-pot clavulanate 875-125 mg tablet 1 tab PO BID Qty: 20 0RF prednisone 10 mg tablets,dose pack See Rx Instructions .ROUTE .COMPLEX Qty: 15 0RF Rx Instructions: Take 5 tablets p.o. x1 day, then 4 tablets p.o. x1 day, then 3 tablets p.o. x1 day, then 2 tablets p.o. x1 day, then 1 tablet p.o. x1 Referrals: Kota Garsia MD [Physician] - Marilee Graham MD [Primary Care Provider] - Visit Report Forms: Patient Portal/API
[2021-12-23] MEDS: SODIUM CHLORIDE 0.9% 500 ML 1000 ML IV (23:22)
[2021-12-23 23:25] LABS: Add Manual Diff / Slide Review NO; Basophils Absolute Auto 0 /uL (0-100); Basophils Percent Auto 0.4 % (0-2); Eosinophils Absolute Auto 100 /uL (0-450); Eosinophils Percent Auto 1.3 % (2-4); Hematocrit 37.3 % (36-46); Hemoglobin 12.8 g/dL (12.0-16.0); Lymphocytes Absolute Auto 2100 /uL (1100-4500); Lymphocytes Percent Auto 36.3 % (25-40); Mean Corpuscular HGB Conc 34.3 % (30-36); Mean Corpuscular Hemoglobin 30.4 PG (26-34); Mean Corpuscular Volume 88.4 fL (80-100); Monocytes Absolute Auto 600 /uL (0-900); Monocytes Percent Auto 9.7 % (3-14); Neutrophils Absolute Auto 3000 /uL (1500-7000); Neutrophils Percent Auto 52.3 % (50-75); Platelet Count 246 X10^3/uL (150-400); Red Blood Cell Count 4.21 X10^6/uL (4.0-5.2); Red Cell Distribution Width 13.2 % (11.6-14.8); White Blood Cell Count 5.7 X10^3/uL (4.5-11.0)
[2021-12-23 23:33] LABS: Alanine Aminotransferase 19 IU/L (<35); Albumin 3.5 g/dL (3.5-5.0); Albumin Globulin Ratio 1.1 (1.0-2.8); Alkaline Phosphatase 61 U/L (38-126); Aspartate Aminotransferase 21 IU/L (14-36); Bilirubin Total 0.3 mg/dL (0.2-1.3); Blood Urea Nitrogen 10 mg/dL (7-17); Calcium 8.5 mg/dL (8.4-10.2); Carbon Dioxide 30 mmol/L (22-32); Chloride 102 mmol/L (98-107); Estimated Glomerular Filt Rate > 60 mL/min (>60); Globulin 3.1 g/dL (1.7-4.1); Glucose 98 mg/dL (70-100); HEMOLYSIS < 15 (0-50); Potassium 3.7 mmol/L (3.4-5.1); Sodium 137 mmol/L (137-145); Total Protein 6.6 g/dL (6.3-8.2)
[2021-12-24] MEDS: DOXYCYCLINE 100 MG in SODIUM CHLORIDE 0.9% 100 ML IV (00:35)
[2021-12-24 02:02] VITALS: BP 124/82; PULSE 70; RESP 18; O2SAT 99
== END 2021-12-24 02:03 | disposition home or self-care (01) ==
PROVIDERS: Emergency Provider Emergency Medicine; Family Provider Family Medicine; PCP Family Medicine
DX: H60.12 Cellulitis of left external ear (principal)
CPT/HCPCS: 36415; 70487; 80053; 81003; 81025; 85025; 96361; 96365; 99284; Q9967

== ENCOUNTER 2022-02-13 08:17 | Emergency (ER) | payer OTHER, MEDICAID, SELFPAY ==
[2022-02-13] VITALS (9 sets, daily range): BP systolic 134–135; BP diastolic 61–70; PULSE 89–113; RESP 24; TEMP 37.7; O2SAT 95–99; BMI 30.5
--- NOTE | 2022-02-13 08:44 | DI.RAD.S_ITS ---
PROCEDURE: XR CHEST 1V INDICATIONS: Shortness of breath TECHNIQUE: One view of the chest was acquired. COMPARISON: [facility], , CHEST 1 VIEW, 07/08/2011, 20:58. FINDINGS: Surgical changes and devices: None. Lungs and pleura: Lungs are clear. No pleural effusions or pneumothorax. Mediastinum: Mediastinal contours appear normal. Heart size is normal. Bones and chest wall: No suspicious bony lesions. Overlying soft tissues appear unremarkable. IMPRESSION: No acute radiographic abnormality. Dictated by: Hi Collazo M.D. on 02/13/2022 at 8:54 Approved by: Hi Collazo M.D. on 02/13/2022 at 8:55
[2022-02-13 10:28] LABS: Influenza A - CEPHEID Flu A POSITIVE (NEGATIVE); Influenza B - CEPHEID Flu B NEGATIVE (NEGATIVE); Respiratory Syncytial Virus Negative (Negative)
[2022-02-13 10:57] LABS: COVID-19 CEPHEID 4-PLEX PCR Negative (Negative)
--- NOTE | 2022-02-13 11:03 | ED_ITS ---
HPI - URI/Sore Throat General Chief Complaint: Shortness of Breath/Dyspnea Stated Complaint: chills,body aches, pressure on chest, fever Time Seen by Provider: 02/13/22 08:20 Source: patient Mode of arrival: Ambulatory History of Present Illness HPI Narrative: 31-year-old female former smoker with history of depression and prior bariatric surgery presents with various classic upper respiratory complaints including mild headache, sore throat, nasal congestion, dry cough body aches since . She is had mild nausea but denies any vomiting. She denies any chest pain or trouble breathing. She has had no abdominal pain or constipation. She denies diarrhea or urinary complaints such as dysuria, frequency or urgency. She is had no rash. She took a home COVID test which was negative Related Data Previous Rx's Medication Instructions Recorded Breast Pump - Double Electric ea ##1 12/15/16 meclizine 12.5 mg tablet 25 mg PO BID-TID PRN dizziness #60 09/26/18 tabs mometasone 0.1 % topical solution 1 applictn topical DAILY #30 mL 10/11/18 pantoprazole 40 mg tablet,delayed 40 mg PO DAILY #30 tabs 11/20/18 release amoxicillin 875 mg-potassium 1 tab PO BID #20 tabs 12/08/21 clavulanate 125 mg tablet prednisone 10 mg tablets in a dose See Rx Instructions PO .COMPLEX 12/08/21 pack #15 ea doxycycline monohydrate 100 mg 100 mg PO BID #20 caps 12/24/21 capsule etonogestrel 68 mg subdermal 1 implant subdermal ONCE #1 ea 01/13/22 implant (Nexplanon) fluoxetine 10 mg capsule 10 mg PO DAILY #30 caps 01/13/22 Allergies Allergy/AdvReac Type Severity Reaction Status Date / Time No Known Drug Allergies Allergy Verified 02/13/22 08:39 Review of Systems Review of Systems Narrative: GENERAL: See HPI HEENT: See HPI RESPIRATORY: See HPI CARDIOVASCULAR: Denies chest pain, palpitations, orthopnea, edema, GASTROINTESTINAL: See HPI : Denies dysuria, frequency, incontinence, hematuria, urinary retention. MUSCULOSKELETAL: denies weakness, joint pain, or bony pain SKIN: Denies rash, skin lesions, or other NEUROLOGIC: Denies weakness, headache, numbness, change in speech, confusion, seizures, incoordination. PSYCHIATRIC: No concerning psychosocial issues. 12 point review of systems is negative except for those stated above Patient History Medical History Depression Surgical History S/P bariatric surgery Social History Smoking Status: Former smoker Smoking Status: Former smoker alcohol intake frequency: a few times a month Substance Use Type: does not use Exam Narrative Exam Narrative: GENERAL: [31] year old patient appears stated age. Well-developed patient, in mild distress. HEAD: Atraumatic. Normocephalic. EYES: Pupils equal round and reactive. Extraocular motions intact. No scleral icterus. No injection or drainage. ENT: Nose without bleeding, purulent drainage. Throat without erythema, tonsillar hypertrophy or exudate. Airway patent. NECK: Trachea midline. Non tender CARDIOVASCULAR: Regular rate and rhythm without murmurs, gallops, or rubs. RESPIRATORY: Clear to auscultation. Breath sounds equal bilaterally. No wheezes, rales, or rhonchi. GASTROINTESTINAL: Abdomen soft, non-tender, nondistended. EXTREMITIES: No edema or joint tenderness. BACK: Nontender without deformity or crepitance. No flank tenderness. NEURO: AOx3. SKIN: No rash or erythema of visible areas Initial Vital Signs Initial Vital Signs: Vital Signs Temperature 100 F H 02/13/22 08:39 Pulse Rate 97 H 02/13/22 08:39 Respiratory Rate 24 02/13/22 08:39 Blood Pressure 135/61 02/13/22 08:39 Pulse Oximetry 98 02/13/22 08:39 Oxygen Delivery Method 02/13/22 08:39 Course Orders Ordered: ED Orders 02/13/22 08:44 XR chest 1V Stat Complete Blood Count AUTO DIFF Stat Comprehensive Metabolic Panel Stat Lactate (Lactic Acid) Stat NT-proBNP (BNP-Adult 18+) Stat Prothrombin Time INR Stat Troponin I Stat Measure peak expiratory flow ONCE RT Consult Eval and Treat NOW 02/13/22 09:21 EKG-12 Lead Stat 02/13/22 09:44 Covid-19 + FLU A/B + RSV - PCR Stat Vital Signs Vital signs: Vital Signs - 8 hr 02/13/22 08:39 Temperature 100 F H Pulse Rate 97 H Respiratory Rate 24 Blood Pressure 135/61 Pulse Oximetry 98 Oxygen Delivery Method Room Air MDM - URI/Sore Throat Lab Data Labs: Lab Results 02/13/22 Range/Units 09:44 SARS-CoV-2 (PCR) Negative (Negative) Influenza A (RT-PCR) Flu a positive H (NEGATIVE) Influenza B (RT-PCR) Flu b negative (NEGATIVE) RSV (PCR) Negative (Negative) Imaging Data Chest x-ray: Radiologist's Impression: [address] [address] XRay Report Signed Patient: Irma Collado MR#: [id number] : 1990 Acct:[id number] Age/Sex: 31 / F Date of Service: 02/13/22 Loc: ED Accession Number: [id number] ?? Procedure: XR chest 1V Ordering Provider: Alex Christianson D.O. PROCEDURE:? XR CHEST 1V ? INDICATIONS:? Shortness of breath ? TECHNIQUE:? One view of the chest was acquired.? ? COMPARISON:? [facility], , CHEST 1 VIEW, 07/08/2011, 20:58. ? FINDINGS:? ? Surgical changes and devices:? None.? ? Lungs and pleura:? Lungs are clear.? No pleural effusions or pneumothorax.? ? Mediastinum:? Mediastinal contours appear normal.? Heart size is normal.? ? Bones and chest wall:? No suspicious bony lesions.? Overlying soft tissues a ppear unremarkable.? ? IMPRESSION:? No acute radiographic abnormality. ? ? Dictated by: Hi Collazo M.D. on 02/13/2022 at 8:54 ? ? Approved by: Hi Collazo M.D. on 02/13/2022 at 8:55 ? [facility] Narrative Medical decision making narrative: [31-year-old female former smoker without significant medical history presents with typical upper respiratory symptoms] Multiple etiologies for patient's symptoms considered including, but not limited to: [COVID, flu versus other] Prior Charts reviewed: Including ED notes from November of this year Labs reviewed and interpreted by myself: Respiratory swab positive for influenza a, negative for COVID and RSV Imaging reviewed: Chest x-ray demonstrates no focal infiltrate Findings and discharge diagnosis discussed with patient/family followed by verbalization of understanding Return precautions discussed with patient/family whom verbalize understanding of diagnosis and plan Discharge Plan Departure Patient Disposition: Home Clinical Impression: Flu Instructions: Influenza Activity Restrictions/Additional Instructions: *You have been diagnosed with [influenza a *What to do: *Please consider the use of bqrq-pmy-[id number] antihistamines such as cetirizine syrup which can dry the secretions that are causing many of these symptoms. As we discussed, a tsp of honey is a great option to help with cough if needed. Fever: *Fever is temperature over 101F, it is a common feature of most viral and bacterial infections *Fever tends to come back once the Tylenol (acetaminophen) or Motrin (ibuprofen) wears off as these medications do not treat the underlying cause, just the fev er itself *Treat the patient, not the number. If your child is running around and playing you don?t have to treat the fever, however, if they seem grumpy or uncomfortable it is reasonable to treat fever *Consider alternating between Tylenol and Motrin so you will be giving medications prior to the previous dose wearing off: * your history and physical exam are very reassuring and there is no indication that the symptoms are due to a bacterial infection, therefore there is no indication for antibiotics. *Please follow up with your primary care provider in 2-3 days, call for an appointment. Let them know you were seen in the Emergency Department and that we ask that you be seen in follow up. We will electronically transmit a record of today's note if your PCP is in our system *If you do not have a primary care provider please contact the [facility] Resource line at [phone]. They will ask some questions about your medical history and help get you set up with a doctor in the community. *Return to Emergency Department if you should have any new, worsening or concerning symptoms increased work of breathing with flaring of nostrils, using belly to breathe, persistent vomiting, or other bothersome symptoms Prescriptions: No Action meclizine 12.5 mg tablet 25 mg PO BID-TID PRN (Reason: dizziness) Qty: 60 0RF mometasone 0.1 % solution 1 applictn TOP DAILY Qty: 30 0RF Rx Instructions: Apply to left external auditory canal once daily for 7 days as needed fluoxetine 10 mg capsule 10 mg PO DAILY Qty: 30 2RF Nexplanon 68 mg implant 1 implant subdermal ONCE Qty: 1 0RF Rx Instructions: Due out 01/13/2025 Breast Pump - Double Electric Qty: 1 0RF pantoprazole 40 mg tablet,delayed release (DR/EC) 40 mg PO DAILY Qty: 30 5RF Rx Instructions: Take 30 minutes before a meal amoxicillin-pot clavulanate 875-125 mg tablet 1 tab PO BID Qty: 20 0RF prednisone 10 mg tablets,dose pack See Rx Instructions .ROUTE .COMPLEX Qty: 15 0RF Rx Instructions: Take 5 tablets p.o. x1 day, then 4 tablets p.o. x1 day, then 3 tablets p.o. x1 day, then 2 tablets p.o. x1 day, then 1 tablet p.o. x1 doxycycline monohydrate 100 mg capsule 100 mg PO BID Qty: 20 0RF Referrals: Marilee Graham MD [Primary Care Provider] -
== END 2022-02-13 11:17 | disposition home or self-care (01) ==
PROVIDERS: Emergency Provider Emergency Medicine; Family Provider Family Medicine; PCP Family Medicine
DX: J10.1 Influenza due to other identified influenza virus with other respiratory manifestations (principal); Z20.822 Contact with and (suspected) exposure to COVID-19
CPT/HCPCS: 0241U; 71045; 93005; 93010; 99283

== ENCOUNTER → 2022-03-22 11:17 | Outpatient (CLI) | payer OTHER, MEDICAID, SELFPAY ==
[2022-03-22 12:22] LABS: Add Manual Diff / Slide Review NO; Basophils Absolute Auto 0 /uL (0-100); Basophils Percent Auto 0.7 % (0-2); Eosinophils Absolute Auto 100 /uL (0-450); Eosinophils Percent Auto 1.2 % (2-4); Hematocrit 37.4 % (36-46); Hemoglobin 12.9 g/dL (12.0-16.0); Lymphocytes Absolute Auto 1400 /uL (1100-4500); Lymphocytes Percent Auto 29.9 % (25-40); Mean Corpuscular HGB Conc 34.4 % (30-36); Mean Corpuscular Hemoglobin 30.8 PG (26-34); Mean Corpuscular Volume 89.4 fL (80-100); Monocytes Absolute Auto 200 /uL (0-900); Monocytes Percent Auto 5.1 % (3-14); Neutrophils Absolute Auto 2900 /uL (1500-7000); Neutrophils Percent Auto 63.1 % (50-75); Platelet Count 333 X10^3/uL (150-400); Red Blood Cell Count 4.18 X10^6/uL (4.0-5.2); Red Cell Distribution Width 13.3 % (11.6-14.8); White Blood Cell Count 4.5 X10^3/uL (4.5-11.0)
[2022-03-22 12:43] LABS: Alanine Aminotransferase 14 IU/L (<35); Albumin 3.6 g/dL (3.5-5.0); Albumin Globulin Ratio 1.2 (1.0-2.8); Alkaline Phosphatase 65 U/L (38-126); Aspartate Aminotransferase 22 IU/L (14-36); Bilirubin Total 0.4 mg/dL (0.2-1.3); Blood Urea Nitrogen 12 mg/dL (7-17); Calcium 8.5 mg/dL (8.4-10.2); Carbon Dioxide 28 mmol/L (22-32); Chloride 104 mmol/L (98-107); Estimated Glomerular Filt Rate > 60 mL/min (>60); Globulin 3.1 g/dL (1.7-4.1); Glucose 83 mg/dL (70-100); HEMOLYSIS 16 (0-50); Potassium 3.8 mmol/L (3.4-5.1); Sodium 139 mmol/L (137-145); Total Protein 6.7 g/dL (6.3-8.2)
[2022-03-22 12:52] LABS: HEMOLYSIS < 15 (0-50); Iron 76 ug/dL (37-170)
[2022-03-22 13:03] LABS: Transferrin 234 mg/dL (206-381)
[2022-03-22 13:37] LABS: Folate 5.6 ng/mL (2.76-20.0); Vitamin B12 427 pg/mL (239-931)
[2022-03-22 16:48] LABS: Vitamin D 25 Hydroxy (D3) 32.4 ng/mL (30.0-100.0)
[2022-03-24 14:54] LABS: Percent Iron Saturation 24 % (15-50); Total Iron Binding Capacity 318 ug/dL (265-497)
[2022-03-26 07:23] LABS: Vitamin B1 133.7 nmol/L (66.5-200.0)
== END ==
PROVIDERS: Family Provider Family Medicine; PCP Family Medicine; Referring Provider Family Medicine; Visit Provider Family Medicine
DX: Z98.84 Bariatric surgery status (principal)
CPT/HCPCS: 36415; 80053; 82306; 82607; 82746; 83540; 83550; 84425; 85025

== ENCOUNTER 2024-05-15 13:20 | Emergency (ER) | payer OTHER, SELFPAY ==
[2024-05-15 13:35] VITALS: BP 155/73; PULSE 67; RESP 18; TEMP 37.1; O2SAT 98; BMI 36.3
[2024-05-15] MEDS: KETOROLAC 30 MG/ML VIAL IM (14:09)
--- NOTE | 2024-05-15 17:17 | ED.NECK ---
HPI - Neck Pain/Injury <Amaris Ratliff PA-C - Last Filed: 05/15/24 17:21> General Chief Complaint: Neck Pain/Injury Stated Complaint: Pain in left shoulder . going down her arm Time Seen by Provider: 05/15/24 13:52 Mode of arrival: Ambulatory History of Present Illness HPI Narrative: 33-year-old female presents to the ED with spontaneous onset of left-sided neck pain and stiffness. Patient's pain started yesterday upon awakening. No trauma. Patient is complaining of left-sided neck pain that radiates down into the upper arm. No numbness, tingling, weakness. No fever, chills, chest pain, shortness of breath Related Data Previous Rx's Medication Instructions Recorded etonogestrel 68 mg subdermal 1 implant subdermal ONCE #1 ea 01/13/22 implant (Nexplanon) norgestimate 0.25 mg-ethinyl 1 tab PO DAILY #84 tabs 03/25/23 estradiol 35 mcg tablet fluoxetine 40 mg capsule 40 mg PO DAILY #90 caps 04/25/23 cyclobenzaprine 10 mg tablet 10 mg PO TID PRN muscle spasm 5 05/15/24 days #15 tabs Allergies Allergy/AdvReac Type Severity Reaction Status Date / Time No Known Drug Allergies Allergy Verified 04/25/23 09:56 Review of Systems <Amaris Ratliff PA-C - Last Filed: 05/15/24 17:21> Constitutional Constitutional: Denies chills, Denies fatigue, Denies fever(s), Denies frequent falls, Denies lethargy and Denies weakness Eyes Eyes: Denies change in vision, Denies eye discharge, Denies irritation and Denies loss of vision ENT Ears, Nose, Mouth, and Throat: Denies change in voice, Denies dizziness, Reports neck pain, Denies sore throat and Denies throat swelling Cardiovascular Cardiovascular: Denies chest pain, Denies irregular heart rhythm, Denies lightheadedness, Denies palpitations, Denies dyspnea, Denies dyspnea on exertion and Denies orthopnea Respiratory Respiratory: Denies cough, Denies dyspnea, Denies dyspnea on exertion and Denies wheezing Gastrointestinal Gastrointestinal: Denies abdominal pain, Denies change in bowel habits, Denies diarrhea, Denies nausea and Denies vomiting Musculoskeletal Musculoskeletal: Reports neck pain and Denies numbness Integumentary/Breasts Skin/Breast: Denies pruritus, Denies erythema, Denies rash and Denies wounds Neurologic Neurologic: Denies behavioral changes, Denies confusion, Denies dizziness, Denies frequent falls, Denies loss of vision, Denies numbness and Denies weakness Psychiatric Psychiatric: Denies anxiety, Denies behavioral changes, Denies confusion, Denies depression, Denies homicidal ideation and Denies suicidal ideation Endocrine Endocrine: Denies fatigue, Denies flushing and Denies palpitations Hematologic/Lymphatic Hematologic/Lymphatic: Denies easy bruising Allergic/Immunologic Allergic/Immunologic: Denies urticaria, Denies throat swelling and Denies wheezing Patient History <Amaris Ratliff PA-C - Last Filed: 05/15/24 17:21> Medical History Depression Surgical History S/P bariatric surgery Social History Smoking Status: Former smoker Smoking Status: Former smoker tobacco type: vaping alcohol intake frequency: a few times a month Exam <Amaris Ratliff PA-C - Last Filed: 05/15/24 17:21> Narrative Exam Narrative: Const General:?cooperative, healthy appearing and comfortable [facility] Head:?normal to inspection Ears:?hearing grossly normal bilaterally Nose:?external nose normal Face and sinus:?normal facial exam and sinuses nontender Mouth:?oral mucosae normal Throat:?posterior oropharynx normal Eyes General:?appearance normal, both eyes and all related structures Neck Neck:?normal visual inspection and no lymphadenopathy noted Resp Effort & Inspection:?normal respiratory effort Auscultation:?clear to auscultation bilaterally Cardio Rate:?regular rate Rhythm:?regular rhythm Musculoskeletal No midline tenderness to palpation. Neck movement is limited by pain. Neurovascularly intact. Neuro General:?patient alert, patient awake and patient oriented x3 Initial Vital Signs Initial Vital Signs: Vital Signs Temperature 98.8 F 05/15/24 13:35 Pulse Rate 67 05/15/24 13:35 Respiratory Rate 18 05/15/24 13:35 Blood Pressure 155/73 H 05/15/24 13:35 Pulse Oximetry 98 05/15/24 13:35 Oxygen Delivery Method Room Air 05/15/24 13:35 <Ronal Camacho MD - Last Filed: 05/16/24 07:50> Initial Vital Signs Initial Vital Signs: Vital Signs Temperature 98.8 F 05/15/24 13:35 Pulse Rate 67 05/15/24 13:35 Respiratory Rate 18 05/15/24 13:35 Blood Pressure 155/73 H 05/15/24 13:35 Pulse Oximetry 98 05/15/24 13:35 Oxygen Delivery Method Room Air 05/15/24 13:35 Course <Amaris Ratliff PA-C - Last Filed: 05/15/24 17:21> Orders Ordered: Discontinued Medications Ketorolac Tromethamine (Ketorolac 30 Mg/Ml Vial) 30 mg IM NOW ONE Stop: 05/15/24 14:03 Last Admin: 05/15/24 14:09 Dose: 30 mg Documented By: ANASTASIIA Vital Signs Vital signs: Vital Signs - 8 hr 05/15/24 13:35 Temperature 98.8 F Pulse Rate 67 Respiratory Rate 18 Blood Pressure 155/73 H Pulse Oximetry 98 Oxygen Delivery Method Room Air <Ronal Camacho MD - Last Filed: 05/16/24 07:50> Orders Ordered: Discontinued Medications Ketorolac Tromethamine (Ketorolac 30 Mg/Ml Vial) 30 mg IM NOW ONE Stop: 05/15/24 14:03 Last Admin: 05/15/24 14:09 Dose: 30 mg Documented By: ANASTASIIA Vital Signs Vital signs: Vital Signs - 8 hr 05/15/24 13:35 Temperature 98.8 F Pulse Rate 67 Respiratory Rate 18 Blood Pressure 155/73 H Pulse Oximetry 98 Oxygen Delivery Method Room Air MDM - Neck Pain/Injury <Amaris Ratliff PA-C - Last Filed: 05/15/24 17:21> MDM Narrative Medical decision making narrative: 33-year-old female presents to the ED with spontaneous onset of left-sided neck pain and stiffness. Physical exam is reassuring for no midline tenderness to palpation. Patient's symptoms are most consistent with a musculoskeletal sprain/strain versus cervical radiculopathy versus other. Patient given a dose of ketorolac in the ED. also prescribed Flexeril. Recommend follow-up with PCP as soon as possible. ED return precautions discussed with patient. Patient verbalized understanding. Medical records reviewed: Yes Discharge Plan Departure Patient Disposition: Home Clinical Impression: Neck pain Instructions: DI for Neck Pain Activity Restrictions/Additional Instructions: You were evaluated in the ED today for neck pain. Your neck pain could be muscle strain a pinched nerve you were given an injection of Toradol in the ED. You are also being prescribed a muscle relaxant to use at home. Please continue to take 800 mg of ibuprofen with food every 8 hours. You may also take 1000 mg of Tylenol every 8 hours. You may apply lidocaine patches for comfort. You may continue to apply ice/heat. Please follow-up with your PCP as soon as possible. Return to the ED if you have worsening symptoms, numbness, tingling, weakness. Prescriptions: New cyclobenzaprine 10 mg tablet 10 mg PO TID PRN (Reason: muscle spasm) 5 Days Qty: 15 0RF No Action fluoxetine 40 mg capsule 40 mg PO DAILY Qty: 90 3RF Nexplanon 68 mg implant 1 implant subdermal ONCE Qty: 1 0RF Rx Instructions: Due out 01/13/2025 norgestimate-ethinyl estradiol 0.25-35 mg-mcg tablet 1 tab PO DAILY Qty: 84 0RF Referrals: Marilee Graham MD [Primary Care Provider] - Stand Alone Forms: Patient Portal/API/Survey ED Sign-out <Ronal Camacho MD - Last Filed: 05/16/24 07:50> [facility]: I was immediately available in the department for consultation. ?This documentation has been reviewed and I agree with assessment and plan. Supervised by Ronal Camacho MD
== END 2024-05-15 14:14 | disposition home or self-care (01) ==
PROVIDERS: Emergency Provider Student in an Organized Health Care Education/Training Program; Family Provider Family Medicine; PCP Family Medicine
DX: M54.2 Cervicalgia (principal)
CPT/HCPCS: 96372; 99283; J1885

== ENCOUNTER → 2024-06-29 18:11 | Outpatient (CLI) | payer OTHER, SELFPAY | LOC: LAB 18:11 | PROVIDERS: Family Provider Family Medicine; PCP Family Medicine; Visit Provider Chiropractor | DX: J02.9 Acute pharyngitis, unspecified (principal) | CPT/HCPCS: 87070 ==